=== PATIENT | male | born 1965 ===

== ENCOUNTER → 2018-01-11 | Outpatient (CLI) | payer MEDICARE ==
[~2018-01-11] VITALS: Ht 172.7 cm; Wt 82.0 kg
[~2018-01-11] MED LIST: DICL75TA5 PO; DOCU100C19 PO; DULO20CA30 PO; ERGO2000 PO; HYDR-4069 PO; LISI-662 PO; SENN-175 PO; SIMV-260 PO; VALA500T38 PO; ZOLP10TA7 PO
[2018-01-11 09:54] VITALS: BP 142/78
== END | disposition home or self-care (01) ==
LOC: SRCNTR 09:52
PROVIDERS: ATTEND Internal Medicine
DX: I10 Essential (primary) hypertension (principal); E78.5 Hyperlipidemia, unspecified; F32.9 Major depressive disorder, single episode, unspecified; G47.33 Obstructive sleep apnea (adult) (pediatric); G89.29 Other chronic pain
CPT/HCPCS: G0463